=== PATIENT | female | born 1975 | race African-American/Black ===

== ENCOUNTER 2017-04-05 09:02 | Emergency (ER) | payer MEDICAID ==
[~2017-04-05] VITALS: Ht 170.2 cm; Wt 97.5 kg
[2017-04-05 09:31] VITALS: BP 134/87
== END 2017-04-05 09:41 | disposition home or self-care (01) ==
LOC: ER 09:02
DX: M13.861 Other specified arthritis, right knee (principal)

== ENCOUNTER 2018-01-19 03:58 | Emergency (ER) | payer MEDICAID ==
[~2018-01-19] VITALS: Ht 170.2 cm; Wt 81.6 kg
[2018-01-19 04:06] VITALS: BP 160/90
[2018-01-19] MEDS ORDERED: KETOROLAC TROMETH 60MG/2ML VIAL IM ONE (05:00)
== END 2018-01-19 06:03 | disposition home or self-care (01) ==
LOC: ER 03:59
DX: S63.691A Other sprain of left index finger, initial encounter (principal); S73.191A Other sprain of right hip, initial encounter; H66.93 Otitis media, unspecified, bilateral; K21.9 Gastro-esophageal reflux disease without esophagitis; W22.8XXA Striking against or struck by other objects, initial encounter; Y93.89 Activity, other specified; Y99.8 Other external cause status; Y92.89 Other specified places as the place of occurrence of the external cause
CPT/HCPCS: 73130; 73502; 96372; 99284; J1885